=== PATIENT | male | born 1945 | race Caucasian/White ===

== ENCOUNTER 2017-04-22 14:02 | Emergency (ER) | payer OTHER ==
[~2017-04-22] VITALS: Ht 188 cm; Wt 83.8 kg
[2017-04-22] MEDS ORDERED: ZOFRAN ODT4 MG PO (15:27)
[2017-04-22 15:56] VITALS: BP 113/60
== END 2017-04-22 15:59 | disposition home or self-care (01) ==
LOC: EME 14:02
DX: J11.1 Influenza due to unidentified influenza virus with other respiratory manifestations (principal); Z87.891 Personal history of nicotine dependence; Z86.73 Personal history of transient ischemic attack (TIA), and cerebral infarction without residual deficits; Z88.2 Allergy status to sulfonamides
CPT/HCPCS: 99281; 99284

== ENCOUNTER 2017-04-28 11:09 | Observation (INO) | payer OTHER ==
[~2017-04-28] VITALS: Ht 185.4 cm; Wt 58.0 kg
[~2017-04-28 11:09] MED LIST: ZOFRAN ODT4 MG PO
[2017-04-28 12:27] LABS: BASOPHIL (%) 0.1 % (0-1); EOSINOPHIL (%) 0.1 % (0-5); HEMOGLOBIN 12.6 G/DL (12.5-16.6); IMMATURE GRANULOCYTE (%) 0.5 % (0.0-0.7); LYMPHOCYTE (%) 8.4 % (15-42); LYMPHOCYTE COUNT 0.6 K/uL (1.0-2.8); MCH 29.9 PG (29.0-34.0); MONOCYTE (%) 6.6 % (3-12); MONOCYTE COUNT 0.5 K/uL (0-0.8); NEUTROPHIL (%) 84.3 % (45-76); NEUTROPHIL COUNT 6.2 K/uL (1.8-6.4); RBC DIS.WIDTH-CV 12.1 % (11.8-14.6); RBC DIS.WIDTH-SD 37.4 % (39-53); RED BLOOD COUNT 4.22 M/uL (4.00-5.50); WHITE BLOOD COUNT 7.4 K/uL (4.1-10.2)
[2017-04-28 12:29] LABS: MCV 85.3 FL (86-99); PLATELET COUNT 93 K/uL (156-360)
[2017-04-28 12:37] LABS: ALBUMIN 3.4 g/dL (3.2-4.8)
[2017-04-28 12:38] LABS: CHLORIDE 99 mEq/L (99-109); POTASSIUM 3.9 mEq/L (3.7-5.4); SODIUM 135 mEq/L (136-147)
[2017-04-28 12:40] LABS: GLUCOSE 124 mg/dL (70-99); TOTAL PROTEIN 7.1 g/dL (6.4-8.3)
[2017-04-28 12:42] LABS: TOTAL BILIRUBIN 0.7 mg/dL (0.0-1.0)
[2017-04-28 12:43] LABS: ALKALINE PHOSPHATASE 54 IU/L (3-129)
[2017-04-28 12:44] LABS: CREATININE 1.9 mg/dL (0.6-1.3); GFR ESTIMATE (CALCULATED) 37 mL/min/ (58.99-99999)
[2017-04-28 12:45] LABS: AST (GOT) 24 IU/L (2-34); UREA NITROGEN (BUN) 38 mg/dL (9-23)
[2017-04-28 12:46] LABS: ALT (GPT) 19 IU/L (3-49)
[2017-04-28 12:47] LABS: CREATINE KINASE 312 IU/L (1-294); TOTAL CK 312 IU/L (1-294)
[2017-04-28 12:52] LABS: CK-MB 2.9 ng/mL (0.0-4.9); CKMB RELATIVE INDEX 0.9 (0.0-3.9)
[2017-04-28] MEDS ORDERED: ZOFRAN ODT4 MG PO (13:25)
[2017-04-28] MEDS ORDERED: PRAVASTATIN SOD40 MG PO (13:25)
[2017-04-28] MEDS ORDERED: LABETALOL HCL200 MG PO (13:26)
[2017-04-28] MEDS ORDERED: TYLENOL EXTRA500 MG PO (13:26)
[2017-04-28] MEDS ORDERED: ZESTORETIC 20-1 EAC1 PO (13:26)
[2017-04-28] MEDS ORDERED: ECOTRIN325 MG PO (13:26)
[2017-04-28] MEDS ORDERED: ADVIL200 MG PO (13:26)
[2017-04-28 16:09] VITALS: BP 110/81
[2017-04-28 20:00] VITALS: BP 121/63
[2017-04-28 23:08] VITALS: BP 136/87
[2017-04-29 04:53] VITALS: BP 155/85
[2017-04-29 05:48] LABS: CHLORIDE 102 MEQ/L (99-109); CREATININE 1.5 MG/DL (0.6-1.3); GFR ESTIMATE (CALCULATED) 49 mL/min/ (58.99-99999); GLUCOSE 106 mg/dL (70-99); MAGNESIUM 1.5 mg/dl (1.3-2.7); SODIUM 135 MEQ/L (136-147); UREA NITROGEN (BUN) 27 mg/dL (9-23)
[2017-04-29 07:12] LABS: THYROTROPIN (TSH) 0.14 MIU/L (0.4-5.5)
[2017-04-29 08:26] VITALS: BP 144/78
[2017-04-29 11:55] VITALS: BP 151/67
[2017-04-29] MEDS ORDERED: OSELTAMIVIR PHO30 MG PO (13:15)
[2017-04-29] MEDS ORDERED: ERGOCALCIF50000 UNIT PO (13:17)
== END 2017-04-29 15:46 | disposition home or self-care (01) ==
LOC: EME 11:09 → EDOF 13:17 → ENRESERV 13:35 → 5WEST 15:37
PROVIDERS: Emergency Medicine; Family Medicine
DX: J10.1 Influenza due to other identified influenza virus with other respiratory manifestations (principal); N17.9 Acute kidney failure, unspecified; E86.0 Dehydration; E05.90 Thyrotoxicosis, unspecified without thyrotoxic crisis or storm; E55.9 Vitamin D deficiency, unspecified; I10 Essential (primary) hypertension; I69.351 Hemiplegia and hemiparesis following cerebral infarction affecting right dominant side; E87.1 Hypo-osmolality and hyponatremia; D69.6 Thrombocytopenia, unspecified; Z85.07 Personal history of malignant neoplasm of pancreas; Z85.46 Personal history of malignant neoplasm of prostate; Z90.79 Acquired absence of other genital organ(s); Z87.891 Personal history of nicotine dependence; Z79.82 Long term (current) use of aspirin; Z88.2 Allergy status to sulfonamides; B97.89 Other viral agents as the cause of diseases classified elsewhere
CPT/HCPCS: 70450; 71045; 80048; 80053; 82306; 82550; 82553; 82607; 83735; 84439; 84443; 84481; 85025; 87493; 87502; 93005; 94640; 94640 76; 99202; 99281; 99285; G0378; J1650; J3480; J7030

== ENCOUNTER → 2017-11-12 | Outpatient (CLI) | payer MEDICARE ==
[~2017-11-12] MED LIST changes: +ADVIL200 MG PO; +ECOTRIN325 MG PO; +ERGOCALCIF50000 UNIT PO; +LABETALOL HCL200 MG PO; +NORCO 5/3251 TABLET PO; +OSELTAMIVIR PHO30 MG PO; +PRAVASTATIN SOD40 MG PO; +SENNA8.6 MG PO; +TYLENOL EXTRA500 MG PO; +VITAMIN D31000 UNIT PO; +ZESTORETIC 20-1 EAC1 PO
== END | disposition home or self-care (01) ==
LOC: CDC 08:52
DX: Z01.810 Encounter for preprocedural cardiovascular examination (principal); I10 Essential (primary) hypertension; R94.31 Abnormal electrocardiogram [ECG] [EKG]; I48.91 Unspecified atrial fibrillation
CPT/HCPCS: 93000

== ENCOUNTER 2017-11-13 07:56 | Day surgery (SDC) | payer OTHER ==
[~2017-11-13] VITALS: Ht 188 cm; Wt 77.1 kg
[~2017-11-13 07:56] MED LIST changes: -NORCO 5/3251 TABLET PO
[2017-11-13 08:46] VITALS: BP 139/82
[2017-11-13] MEDS ORDERED: NORCO 5/3251 TABLET PO (11:57)
[2017-11-13 12:20] VITALS: BP 167/88
[2017-11-13 13:19] VITALS: BP 140/87
== END 2017-11-13 13:32 | disposition home or self-care (01) ==
LOC: SDC
DX: K40.90 Unilateral inguinal hernia, without obstruction or gangrene, not specified as recurrent (principal); Z85.46 Personal history of malignant neoplasm of prostate; E78.5 Hyperlipidemia, unspecified; I10 Essential (primary) hypertension; Z86.010 Personal history of colon polyps; K21.9 Gastro-esophageal reflux disease without esophagitis; I69.351 Hemiplegia and hemiparesis following cerebral infarction affecting right dominant side; Z79.82 Long term (current) use of aspirin; Z87.891 Personal history of nicotine dependence; Z83.3 Family history of diabetes mellitus; Z82.49 Family history of ischemic heart disease and other diseases of the circulatory system; Z80.0 Family history of malignant neoplasm of digestive organs
CPT/HCPCS: C1781; J0690; J3010; S0020